=== PATIENT | male | born 1950 | race Caucasian/White ===

== ENCOUNTER 2023-12-12 13:50 | Outpatient (CLI) | payer SELFPAY | END 2023-12-12 23:59 | disposition EMS.NT | LOC: EMS 13:50 | DX: R03.0 Elevated blood-pressure reading, without diagnosis of hypertension (principal) ==

== ENCOUNTER 2023-12-18 17:17 | Outpatient (CLI) | payer MEDICARE | END 2023-12-18 17:18 | disposition short-term general hospital (02) | LOC: EMS 17:17 | DX: R53.1 Weakness (principal); R63.0 Anorexia; R63.1 Polydipsia; L89.159 Pressure ulcer of sacral region, unspecified stage; R23.8 Other skin changes; I48.91 Unspecified atrial fibrillation; G82.20 Paraplegia, unspecified | CPT/HCPCS: A0425; A0427 ==